=== PATIENT | male | born 1985 | race Caucasian/White ===

== ENCOUNTER 2016-08-11 01:51 | Emergency (ER) | payer BC ==
[2016-08-11 04:38] LABS: HEMOGLOBIN 14.3 gm/dl (14.0-17.5); RED BLOOD COUNT 5.07 M/UL (4.20-5.50); WHITE BLOOD COUNT 10.5 K/UL (4.5-11.0)
[2016-08-11 04:45] LABS: BUN/CREATININE RATIO 9 (0-10)
== END 2016-08-11 05:43 | disposition home or self-care (01) ==
LOC: ER1 01:51
PROVIDERS: Physician Assistant
DX: R11.2 Nausea with vomiting, unspecified (principal); R19.7 Diarrhea, unspecified; R05 Cough
CPT/HCPCS: 36415; 71020; 80053; 81001; 83690; 85025; 87081; 87880; 96374; 99284; J2405